=== PATIENT | female | born 1955 | race Caucasian/White ===

== ENCOUNTER 2024-10-19 10:09 | Outpatient (CLI) | payer MEDICARE, SELFPAY ==
--- NOTE | ~2024-10-19 | DEXA_ITS ---
Bone Density Report Name: LISA SOL Age: 69 Sex: Female Ethnicity: White Date of : 1955 Indication: postmenopausal; screening for osteoporosis; cancer; Referring Provider: MARIELA, TRIPP Carter Study: Bone densitometry was performed. Exam Date: October 19, 2024 Accession number: [id number] Bone Density: Region BMD T-score Z-score Classification AP Spine(L1-L4) 0.957 -0.8 1.2 Normal Femoral Neck (Left) 0.836 -0.1 1.6 Normal Total Hip (Left) 1.005 0.5 2.0 Normal Femoral Neck (Right) 0.859 0.1 1.8 Normal Total Hip (Right) 1.004 0.5 2.0 Normal Total Hip Mean 1.005 0.5 2.0 Normal World Health Organization criteria for BMD impression classify patients as: Normal (T-score at or above -1.0), Osteopenia (T-score between -1.0 and -2.5), or Osteoporosis (T-score at or below -2.5). 10-year Fracture Risk: FRAX not reported because: All T-scores for Spine Total, Hip Total, Femoral Neck at or above -1.0 Clinical Information Provided by Patient: Has used the following medications: Vitamin D, Calcium Has the following medical conditions: Cancer, rt breast ca Patient maximum height was 65.5 Menopause Age: 42 No regular weight bearing exercise Drinks caffeinated beverages Onset of menses at age 14 Number of children 1 Impression: The patient has normal bone mass. Discussion: BONE DENSITY IS ABOVE THE MINIMUM DESIRABLE LEVEL AT ALL SKELETAL SITES TESTED. This patient?s bone mineral density is above the minimum desirable level (T-score -1.0 or better) at all sites measured. The patient should follow a healthful lifestyle (good nutrition with adequate calcium and vitamin D, and appropriate weight-bearing exercise). Follow-Up: Consider repeating this study in 5 years or sooner if there is some new clinical indication. Reported by: LAINE on 10/19/2024 10:49:00 AM. Reviewed, dictated and finalized at location [facility]
--- OUTSIDE RECORDS SUMMARY | 2024-10-19 11:29 | XMS_ITS | Clinical Summary ---
Author Organization [facility] Address [address] [place], [place] [id number] Care Team Providers Care Judicial Assistant Name Role Phone None, Provider MD Primary Care Provider Unavaila ble Social History Tobacco Use Types Packs/Day Years Used Date Smoking Tobacco: Never Assessed Comments Unknown Sex and Gender Information Value Date Recorded Sex Assigned at Not on file Legal Sex Female 7:01 PM CDT Gender Identity Not on file Sexual Orientation Not on file Plan of Treatment Health Maintenance Due Date Last Done Comments Colorectal Cancer Screening Colonoscopy (10 Years) 1955 Hepatitis C 09/23/1973 Mammogram Screening 1995 Zoster Vaccines (1 of 2) 09/23/2005 Annual Medicare Wellness Visit 09/23/2020 Dexa Scan (General) 09/23/2020 Pneumococcal Vaccine: 65+ Years (1 of 1 - PCV) 09/23/2020 COVID-19 Vaccine ( - 2023-2 5 season) 2024 Influenza Adult (#1) 2024 07/02/2015, 06/20/2013 RSV Immunization or 60+ Years (1 - 1-dose 75+ series) 09/23/2030 DTaP, Tdap and Td Vaccines ( 2 - Td or Tdap) 10/07/2032 10/07/2022 Meningococcal B Vaccine Aged Out No l onger eligible based on patient's age to complete this topic Meningococcal Vaccine Aged Out No yara ian eligible based on patient's age to complete this topic RSV Immunizations Under 20 Months Aged Out No longer eligible b ased on patient's age to complete this topic Insurance [facility] Care Teams Judicial Assistant Relationship Specialty Start Date End Date None, Provider, MD PCP - General UNKNOWN PHYSICIAN SPECIALTY 04/05/24
--- OUTSIDE RECORDS SUMMARY | 2024-10-19 11:29 | XMS_ITS | Continuity of Care Document ---
Author Organization [facility] [place] Address [address] [place] [address] Phone Care Team Providers Care Senior International Tax Manager Name Role Phone Marylu Marin Unavailable Unavailable Allergies, Adverse Reactions, Alerts Substance Reaction Status Criticality AMLODIPINE BESYLATE Rash Active No Infor mation OLMESARTAN MEDOXOMIL Rash Active No Info rmation sulfamethoxazole Other Active No Informat ion trimethoprim Other Active No Information Medications Medication Instructions Dosage Effective Dates (start - stop) Status Comments methocarbamol 500 mg tablet take 1 to 2 tablets by oral route 3 times every day as needed for muscle tightness- may cause drowsiness - Active naproxen 500 mg tablet,delayed release take 1 tablet by oral route 2 times every day with food as needed for pain and inflammation - Active Irbesartan 150 MG Oral Tablet Take 1 tablet by mouth once daily - Active Levothyroxine Sodium 50 MCG Oral Tablet Take 1 tablet by mouth once daily - Active Vitamin D3 25 mcg (1,000 unit) tablet - Active Glucosamine Chondroitin 550 mg-30 mg-1 mg capsule take 1 capsule daily - Active Calcium 600 + D(3) 600 mg (1,500)-200 unit tablet take 1 tablet by oral route daily - Active MULTIVITAMIN TABS 1 QD-daily - Active FISH OIL OMEGA-3 BUCCAL ADH. PATCH - Active cephalexin 500 mg capsule take 1 capsule by oral route every 6 hours 500 MG - No Longer Active scopolamine 1 mg over 3 days transdermal patch apply 1 patch by transdermal route to the hairless area behind 1 ear at least 4 hr before effect is required; reapply every 3 days as needed 1.00 patch - No Longer Active Procedures Procedure Date Pt inelig neg scrn depres OFFICE [id number]-HSX-QCRIBULF BODY MASS INDEX DOCD SYST BP GE 130 - 139MM HG DIAST BP 80-89 MM HG OFFICE LSEHO-ZOT-YZNPUKFX Visit Complexity Inherent To E/M 2023 Pt inelig neg scrn depres ROUTINE VENIPUNCTURE [place] PREVENTATIVE-EST: 65 & OVER OFFICE [id number]-[id number]-HPPGBIEE BODY MASS INDEX DOCD SYST BP LT 130 MM HG DIAST BP 80-89 MM HG CBC, INC PLATELETS AND DIFFERENTIAL COMPREHEN METABOLIC PANEL CMP 4 LIPID PANEL THYROID STIMULATION HORMONE(TSH) 2023 OFFICE LVSKM-JGA-UQSMUPGE BODY MASS INDEX DOCD SYST BP GE 130 - 139MM HG DIAST BP < 80 MM HG OFFICE PSRKY-ULH-GWCKTCMC BODY MASS INDEX DOCD SYST BP >= 140 MM HG6 IT DIAST BP < 80 MM HG CBC, INC PLATELETS AND DIFFERENTIAL COMPREHEN METABOLIC PANEL CMP 3 LIPID PANEL THYROID STIMULATION HORMONE(TSH) 2022 Pt inelig neg scrn depres FALL RISK ASSESSMENT DOC'D PRES/ABSN URINE INCON ASSESS PREVENTATIVE-EST: 65 & OVER BODY MASS INDEX DOCD SYST BP LT 130 MM HG DIAST BP < 80 MM HG ROUTINE VENIPUNCTURE IL PREVENTATIVE-EST: 65 & OVER BODY MASS INDEX DOCD SYST BP LT 130 MM HG DIAST BP < 80 MM HG CBC, INC PLATELETS AND DIFFERENTIAL COMPREHEN METABOLIC PANEL CMP LIPID PANEL THYROID STIMULATION HORMONE(TSH) 2021 ROUTINE VENIPUNCTURE [place] OFFICE EISFK-FHY-LCCEXBIL BODY MASS INDEX DOCD SYST BP GE 130 - 139MM HG DIAST BP < 80 MM HG BASIC METABOLIC PANEL(BMP) CBC, INC PLATELETS AND DIFFERENTIAL URINALYSIS, DIPSTICK (UA) - Office Lab J ROUTINE VENIPUNCTURE FALL RISK ASSESSMENT DOC'D PRES/ABSN URINE INCON ASSESS Pt inelig neg scrn depres PREVENTATIVE-EST: 65 & OVER BODY MASS INDEX DOCD SYST BP LT 130 MM HG DIAST BP < 80 MM HG CBC, INC PLATELETS AND DIFFERENTIAL COMPREHEN METABOLIC PANEL [facility] LIPID PANEL THYROID STIMULATION HORMONE(TSH) 2020 ROUTINE VENIPUNCTURE Pt inelig neg scrn depres OFFICE [id number]-AEU-LOBWRHUH BODY MASS INDEX DOCD SYST BP LT 130 MM HG DIAST BP 80-89 MM HG BASIC METABOLIC PANEL(BMP) LIPID PANEL ROUTINE VENIPUNCTURE Pt inelig neg scrn depres PREVENTATIVE-EST: 40-64 BODY MASS INDEX DOCD SYST BP LT 130 MM HG DIAST BP 80-89 MM HG GENERAL HEALTH PANEL ROUTINE VENIPUNCTURE Pt inelig neg scrn depres OFFICE [id number]-XHS-YSINKJYU BODY MASS INDEX DOCD SYST BP LT 130 MM HG DIAST BP 80-89 MM HG BASIC METABOLIC PANEL(BMP) ROUTINE VENIPUNCTURE Advance Directives Directive Yes / No Effective Date File Name Other Directive No N/A N/A WARNING:The information contained in this section is historical and is provided for information only and does not constitute a legal document or any assurance that the information is still accurate. Please verify the information with the horn of the legal document before using it for clinical purposes. Encounters Encounter Description Practice Location Reason(s) For Visit Diagnoses Date Provider Providers Copied on Encounter OFFICE [facility]XLI-PO [facility], [address], [place], [place], [address] , tel: [phone] [facility] [place] bite on buttock (chief complaint) Body mass index [BMI] 27.0-27.9, adultCellulitis of buttock 5 Vincent Marylu. [address] [place], [place], [address], [place]. tel:[phone] Referring Provider: Mamta Pitts, [address] [place], [address] . tel:[phone] [facility], [address], [place], [place], [address] , [place] [phone] [facility] [place] No Information 4 Arsen Oleary. [address] [place], [place], [address], [place]. tel:[phone] OFFICE HDENS-BJC-RM [facility], [address], [place], [place], [address] , tel:[phone] [facility] [place] evaluate right thoracic pain (chief complaint) Body mass index [BMI] 29.0-29.9, adultAcute right-sided thoracic back pain 4 Arsen Oleary. [address] [place], [place], [address], [place]. tel:[phone] Referring Provider: Mamta Pitts, [address] [place], [address] . tel:[phone] [facility], [address], [place], [place], [address] , [place] tel: [phone] [facility] No Information 4 Arsen Oleary. [address] [place], [place], [address], [place]. tel:[phone] PREVENTATIVE -EST: 65 & OVER [facility], [address], [place], [place], [address] , [place] tel: [phone] [facility] preventive exam (chief complaint)C hronic Conditions (chief complaint) Body mass index [BMI] 27.0-27.9, adultEssential hypertensionAcqu ired hypothyroidismRo utine medical examBreast asymmetryUrinary incontinence in femaleUpper back painColon cancer screening 4 Arsen Oleary. [address] [place], [place], [address], [place]. tel:[phone] Referring Provider: Mamta Pitts, [address] [place], [address] . tel:[phone] [facility], [address], [place], [place], [address] , [place] tel: [phone] [facility] No Information 4 Supriya [address]low. [address] [place] [address], [address], [place]. tel:[phone] Referring Provider: Mamta Pitts, [address] [place], [address] . tel:[phone] OFFICE GQXLN-WNR-IB TAILED [facility], [address], [place], [place], [address] , [place] tel: [phone] [facility] pre op clearance for cataract surgery (chief complaint) Acquired hypothyroidismEs sential hypertensionPulm onary fibrosisCataract , unspecified cataract type, unspecified lateralityPre-op erative clearance Oct-1 9-202 3 Carlton Valero. [address] [place], [place], [address], [place]. tel:[phone] Referring Provider: Mamta Pitts, [address] [place], [address] . tel:[phone] OFFICE JUMCE-ZKZ-GZ PANDED [facility], [address], [place], [place], [address] , [place] tel: [phone] [facility] neck pain (chief complaint) Neck painBody mass index [BMI] 26.0-26.9, adult 3 Carlton Valero. [address] [place], [place], [address], [place]. tel:[phone] Referring Provider: Mamta Pitts, [address] [place], [address] . tel:[phone] [facility], [address], [place], [place], [address] , [place] tel: [phone] [facility] No Information 3 Supriya Verasn. [address], [address], [place]. tel:[phone] Referring Provider: Mamta Pitts, [address] [place], [address] . tel:[phone] PREVENTATIVE -EST: 65 & OVER [facility], [address], [place], [place], [address] , [place] tel: [phone] [facility] preventive exam (chief complaint) Body mass index [BMI] 25.0-25.9, adultOther insomniaRoutine medical examAcquired hypothyroidismEs sential hypertensionEnco unter for screening mammogram for malignant neoplasm of breastAge-relate d osteoporosis with current pathological fracture, vertebra(e), initial encounter for fracture 3 Arsen Oleary. [address] [place], [place], [address], [place]. tel:[phone] Referring Provider: Mamta Pitts, [address] [place], [address] . tel:[phone] [facility], [address], [place], [place], [address] , tel:[phone] [place] Pain in right footPain in left foot 2 Arsen Oleary. [address] [place], [place], [address], . tel:[phone] PREVENTATIVE -EST: 65 & OVER [facility], [address], [place], [place], [address] , tel:[phone] [place] Chronic Conditions (chief complaint)p reventive exam (chief complaint) Body mass index [BMI] 24.0-24.9, adultRoutine medical examAcquired hypothyroidismEs sential hypertensionBron chiectasis without complicationPulm onary fibrosisEncounte r for screening for lipid disorderEncounte r for screening for malignant neoplasm of colon 2 Arsen Oleary. [address] [place], [place], [address], [place]. tel:[phone] Referring Provider: Mamta Pitts, [address] [place], [address] . tel:[phone] OFFICE RTJDR-OGK-ON [facility], [address], [place], [place], [address] , [phone] [place] back pain (chief complaint) Acute right-sided thoracic back pain 2 Carlton Marylu. [address] [place], [place], [address], . tel:[phone] Referring Provider: Mamta Pitts, [address] [place], [address] . tel:[phone] PREVENTATIVE -EST: 65 & OVER [facility], [address], [place], [place], [address] , [phone] [place] preventive exam (chief complaint) Essential hypertensionAcqu ired hypothyroidismRo utine medical examBody mass index (BMI) 28.0-28.9, adultScreening for lipoid disorders 1 Arsen Oleary. [address] [place], [place], [address], [place]. tel:[phone] Referring Provider: Mamat Pitts, [address] [place], [address] . tel:[phone] OFFICE VIJXC-RES-IM [facility], [address], [place], [place], [address] , tel: [phone] [place] chronic conditions (chief complaint)C hronic Conditions (chief complaint) Body mass index (BMI) 28.0-28.9, adultEssential hypertensionAcqu ired hypothyroidismEc zema, unspecified type Jun-0 9-202 0 Arsen Oleary. [address] [place], [place], [address], [place]. tel:[phone] Referring Provider: Mamta Pitts, [address] [place], [address] . tel:[phone] PREVENTATIVE -EST: 40-64 [facility], [address], [place], [place], [address] , [place] tel: [phone] [place] Telehealth (chief complaint)P reventive exam (chief complaint) Body mass index (BMI) 28.0-28.9, adultAcquired hypothyroidismEs sential hypertensionRout ine medical exam Dec-0 0 Arsen Oleary. [address] [place], [place], [address], [place]. tel:[phone] Referring Provider: Mamta Pitts, [address] [place], [address] . tel:[phone] OFFICE [facility], [address], [place], [place], [address] , [place] tel: [phone] [place] 6 month (chief complaint)C hronic Conditions (chief complaint) Essential hypertensionAcqu ired hypothyroidism Jun- 9 Arsen Oleary. [address] [place], [place], [address], [place]. tel:[phone] Referring Provider: Mamta Pitts, [address] [place], [address] . tel:[phone] [facility], [address], [place], [place], [address] , [place] tel: [phone] [place] Essential hypertension 9 Arsen Oleary. [address] [place], [place], [address], [place]. tel:[phone] Referring Provider: Mamta Pitts, [address] [place], [address] . tel:[phone] [facility], [address], [place], [address] , [place] tel: [phone] [place] preventive exam (chief complaint) Routine medical examUnspecified essential hypertensionAcqu ired hypothyroidismBo dy mass index (BMI) 29.0-29.9, adultEncntr screen mammogram for malignant neoplasm of breastPost-menop ausal 9 Arsen Oleary. [address] [place], [place], [address], [place]. tel:[phone] Referring Provider: Mamta Pitts, [address] [place], [address] . tel:[phone] [facility], [address], [place], [place], [address] , [place] tel: [phone] [place] Essential (primary) hypertensionHypo thyroidism, unspecified type 9 Arsen Oleary. [address] [place], [place], [address], [place]. tel:[phone] Referring Provider: Mamta Pitts, [address] [place], [address] . tel:[phone] [facility], [address], [place], [place], [address] , [place] tel: [phone] [place] Essential (primary) hypertensionHypo thyroidism, unspecifiedBody mass index (BMI) 28.0-28.9, adult Nov- 8 Arsen Oleary. [address] [place], [place], [address], [place]. tel:[phone] Referring Provider: Mamta Pitts, [address] [place], [address] . tel:[phone] [employer] [facility], [address], [place], [place], [address] , tel: [phone] [place] Encounter for preventive health examinationEssen tial (primary) hypertensionHypo thyroidism, unspecifiedPerso nal history of malignant neoplasm of breastScreening for malignant neoplasm of colon 8 Shoaib Alexander. [address] [place], [place], [address]. tel:[phone] Referring Provider: Catherine Cramer, [address] [place], [address] . tel:[phone] [facility], [address], [place], [place], [address] , tel: [phone] [place] Benign essential hypertensionUnsp ecified hypothyroidismSc reening for lipoid disorders 8 Shoaib Alexander. [address] [place], [place], [address]. tel:[phone] Referring Provider: Catherine Cramer, [address] [place], [address] . tel:[phone] [facility], [address], [place], [place], [address] , tel: [phone] [place] Essential (primary) hypertensionHypo thyroidism, unspecifiedMajor depressive disorder, single episode, unspecified 8 Shoaib Alexander. [address] [place], [place], [address]. tel:[phone] Referring Provider: Catherine Cramer, [address] [place], [address] . tel:[phone] [employer] [facility], [address], [place], [place], [address] , tel: [phone] [place] Essential (primary) hypertensionHypo thyroidism, unspecifiedPerso nal history of malignant neoplasm of breastGastro-eso phageal reflux disease without esophagitis 7 Shoaib Alexander. [address] [place], [place], [address]. tel:[phone] Referring Provider: [place], [address] . tel:[phone] [facility], [address], [place], [place], [address] , tel: [phone] [place] Encounter for preventive health examinationEssen tial (primary) hypertensionHypo thyroidism, unspecifiedGastr o-esophageal reflux disease without esophagitisMajor depressive disorder, single episode, unspecifiedPerso nal history of malignant neoplasm of breast Shoaib Alexander. [address] [place], [place], [address]. tel:[phone] Referring Provider: Catherine Cramer, [place], [address] . tel:[phone] [facility], [address], [place], [place], [address] , tel: [phone] [place] Other terminal gauger supervisor (current) drug therapy Shoaib Lanceh. [address] [place], [place], [address]. tel:[phone] Referring Provider: [place], [address] . tel:[phone] [facility], [address], [place], [place], [address] , tel: [phone] [place] Essential (primary) hypertensionHypo thyroidism, unspecifiedGastr o-esophageal reflux disease without esophagitisMajor depressive disorder, single episode, unspecified 7 Cramerraghavendra Lanceh. [address] [place], [place], [address]. tel:[phone] Referring Provider: Catherine Cramer, [place], [address] . tel:[phone] [facility], [address], [place], [place], [address] , [place] tel: [phone] [place] Diarrhea, unspecified type Nov-2 6 Cramer Catherine. [address] [place], [place], [address]. tel:[phone] [facility], [address], [place], [place], [address] , tel: [phone] [place] Essential (primary) hypertensionHypo thyroidism, unspecifiedGastr o-esophageal reflux disease without esophagitisOther depressive episodes Sep-0 6 Cramer Catherine. [address] [place], [place], [address]. tel:[phone] Referring Provider: Catherine Cramer, [address] [place] [address], [address] . [phone] [facility], [address], [place], [place], [address] , tel: [phone] [place] Encounter for preventive health examinationEssen tial (primary) hypertensionHypo thyroidism, unspecifiedOther depressive episodesPersonal history of malignant neoplasm of breastGastro-eso phageal reflux disease without esophagitis November-0 6 Cramer Catherine. [address] [place], [place], [address]. tel:[phone] Referring Provider: Catherine Cramer, [address] [place], [address] . tel:[phone] [facility], [address], [place], [place], [address] , tel: [phone] [place] Essential (primary) hypertensionHypo thyroidism, unspecifiedOther depressive episodesEncounte r for immunization 0 5 Cramer Catherine. [address] [place], [place], [address]. tel:[phone] Referring Provider: Catherine Cramer, [address] [place], [address] . [phone] [facility], [address], [place], [place], [address] , tel: [phone] [place] Unspecified essential hypertensionHypo thyroidism, unspecifiedDepre ssive disorder, not elsewhere classifiedGERD (gastroesophagea l reflux disease)Bronchit is 5 Shoaib Alexander. [address] [place], [place], [address]. tel:[phone] Referring Provider: Catherine Cramer, [place], [address] . [phone] [facility], [address], [place], [place], [address] , tel: [phone] [place] Routine Medical ExamUnspecified essential hypertensionHypo thyroidism, unspecifiedDepre ssive disorder, not elsewhere classifiedHX OF BREAST MALIGNANCY 5 Shoaib Lanceh. [address] [place], [place], [address]. tel:[phone] Referring Provider: Catherine Cramer, [place], [address] . tel:[phone] [facility], [address], [place], [place], [address] , [place] tel: [phone] [place] Secondary hypertension, unspecifiedHypot hyroidism, unspecifiedEncou nter for long-term (current) use of other high-risk medicationsScree helena for lipoid disorders 5 Shoaib Lanceh. [address] [place], [place], [address]. tel:[phone] Referring Provider: Catherine Cramer, [place], [address] . tel:[phone] [facility], [address], [place], [place], [address] , [place] tel: [phone] [place] Unspecified essential hypertensionUnsp ecified hypothyroidismDe pressive disorder, not elsewhere classifiedHX OF BREAST MALIGNANCYURI (upper respiratory infection) 4 Shoaib Lanceh. [address] [place], [place], [address]. tel:[phone] Referring Provider: Catherine Cramer [address] [place], [address] . tel:[phone] [facility], [address], [place], [place], [address] , tel: [phone] [place] Unspecified essential hypertensionUnsp ecified hypothyroidismDe pressive disorder, not elsewhere classified 4 Shoaib Lanceh. [address] [place], [place], [address]. tel:[phone] Referring Provider: Catherine Cramer, [address] [place], [address] . tel:[phone] [employer], [address], [place], [place], [address] , tel: [phone] [place] Routine Medical ExamHTNHypothyro idismDepressionP ersonal history of malignant neoplasm of breastRoutine Medical Exam 4 Shoaib Alexander. [address] [place], [place], [address]. tel:[phone] Referring Provider: Catherine Cramer, [address] [place], [address] . tel:[phone] [facility], [address], [place], [place], [address] , tel: [phone] [place] HTNHypothyroidis mDepressionPerso nal history of malignant neoplasm of breast 3 Shoaib Alexander. [address] [place], [place], [address]. tel:[phone] Referring Provider: Catherine Cramer, [address] [place], [address] . tel:[phone] [facility], [address], [place], [place], [address] , tel: [phone] [place] Routine general medical examination at a health care facilityRoutine general medical examination at a health care facility 3 Shoaib Lanceh. [address] [place], [place], [address]. tel:[phone] Referring Provider: Catherine Cramer, [place], [address] . [phone] [facility], [address], [place], [place], [address] , [place] tel: [phone] [place] Personal history of malignant neoplasm of breastScreening for lipoid disordersUnspeci fied acquired hypothyroidismLo ng-term (current) use of other medications 3 Shoaib Lanceh. [address] [place], [place], [address]. tel:[phone] Referring Provider: Catherine Cramer, [place], [address] . tel:[phone] [facility], [address], [place], [place], [address] , [place] tel: [phone] [place] NEED FOR PROPHYLACTIC VACCINATION AND INOCULATION, INFLUENZA 2 Shoaib Lanceh. [address] [place], [place], [address]. tel:[phone] Referring Provider: Catherine Cramer, [place], [address] . tel:[phone] [facility], [address], [place], [place], [address] , [place] tel: [phone] [place] HX OF BREAST MALIGNANCYROUTIN E MEDICAL EXAMROUTINE MEDICAL EXAM 2 Shoaib Lanceh. [address] [place], [place], [address]. tel:[phone] Referring Provider: Catherine Cramer, [place], [address] . tel:[phone] [facility], [address], [place], [place], [address] , [place] tel: [phone] [place] No Information 1 Cramer Catherine. [address] [place], [place], [address]. tel:[phone] [facility], [address], [place], [place], [address] , tel: [phone] [place] Personal history of malignant neoplasm of breastPersonal history of malignant neoplasm of breast May-0 1 Cramer Catherine. [address] [place], [place], [address]. tel:[phone] Referring Provider: Catherine Cramer, [address] [place] [address], [address] . tel:[phone] [facility], [address], [place], [place], [address] , tel: [phone] Conversion Department No Information 1 Conversion Doctor. [address] [place] [address], [facility], . [facility], [address], [place], [place], [address] , tel: [phone] [place] DEPRESSIVE DISORDER NECLONG-TERM USE MEDS NEC Sep- 1 Conversion Doctor. [facility] [place], [place], [facility], . [facility], [address], [place], [place], [address] , tel: [phone] [place] SCREEN MALIG NEOP-COLONHYPOTH YROIDISM NOSHX OF BREAST MALIGNANCYHYPERT ENSION NOS 2 2 1 Cramer Catherine. [address] [place], [place], [address]. tel:[phone] [facility], [address], [place], [place], [address] , [place] tel: [phone] [place] SCREEN LIPOID DISORDERS Apr-0 6-201 0 Cramer Catherine. [address] [place], [place], [address]. tel:[phone] [facility], [address], [place], [place], [address] , [place] tel: [phone] [place] PRSNL HST COLONIC POLYPSSCREEN MAL NEOP-RECTUM Sep-2 3-200 9 Cramer Catherine. [address] [place], [place], [address]. tel:[phone] [facility], [address], [place], [place], [address] , tel: [phone] [place] ROUTINE MEDICAL EXAM Mar- 6 Cramer Catherine. [address] [place], [place], [address]. tel:[phone] [employer] [facility], [address], [place], [place], [address] , [place] tel: [phone] [place] OTHER ATOPIC DERMATITIS Sep-0 7200 6 Cramer Catherine. [address] [place], [place], [address]. tel: [phone] [facility], [address], [place], [place], [address] , [place] tel: [phone] [place] GYNECOLOGIC EXAMINATION Sep- 3 Cramer Catherine. [address] [place], [place], [address]. tel:[phone] Family History Family Member Type Diagnosis Age At Onset Problem (finding) Family history of Diabe david mellitus Mother Problem (finding) coronary arterioscleros is Immunizations Vaccine Date Status Comments Influenza, injectable, quadrivalent, preservative free, 3 yrs or older administered Source: New Immuniz ation Record FLU 3 yrs and older administered Note: [facility] 89453-334-92 ; Source: New Immunization Record Flu (split) (3 yrs or older) administered Note: [facility] 89608-790-15 ; Source: New Immunization Record flu (split) (3 yrs or older) administered Source: New Immunization Record Payers Payer name Insurance type Covered alliance party ID Authoriza tion(s) [facility] MDCR COMPLETE HMO MB [id number] [facility] [id number] Social History Type Description Quantity Date Captured Comments Alcohol Use Details wine Caffeine Use Details Unknown Tobacco Use Status Current non-smoker Smoking Status Never smoker Sex Female Vital Signs Date / Time: Height Weight BMI Pulse Rate Blood Pressure Temperature Respiratory Rate Body Surface Area Head Circumference Head Circ. Percentile Wt./Yosef. Percentile BMI percentile Pulse Ox Inhaled Ox 2:12 PM 65.00 in 75.841 kg (167.20 lbs) 27.8 2 kg/m eter (2) 82 /min 133/80 mm[Hg] Chief Complaint And Reason For Visit From encounter dated '10/04/2024 11:40'. bite on buttock (chief complaint). Description: 69 year old female who presents with itching to left buttock for the past few days. She was applying neosporin. Her looked atarea 2 days ago and did not see any rashes. She applied a spray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
== END 2024-10-19 10:10 | disposition home or self-care (01) ==
LOC: ANHIMG 10:12
PROVIDERS: PCP Internal Medicine; Visit Provider Internal Medicine
DX: Z78.0 Asymptomatic menopausal state (principal)
CPT/HCPCS: 77080